=== PATIENT | female | born 1955 | race Caucasian/White ===

== ENCOUNTER 2016-09-15 15:45 | Day surgery (SDC) | payer OTHER ==
[2016-09-15 16:14] LABS: Mean Corpuscular Hemoglobin 28.8 pg (27.0-35.0)
[2016-09-22] MEDS ORDERED: LEVO75TA4 PO (11:15)
[2016-09-22] MEDS ORDERED: AMLO5TAB2 PO (11:15)
[2016-09-22] MEDS ORDERED: HYDR25TA4 PO (11:15)
[2016-09-22] MEDS ORDERED: ESTR10TA VAGINAL (11:15)
[2016-09-22] MEDS ORDERED: LORA10CA PO (11:15)
== END 2016-09-15 23:59 | disposition home or self-care (01) ==
LOC: SAS 15:45
PROVIDERS: ATTEND Orthopaedic Surgery
DX: Z01.818 Encounter for other preprocedural examination (principal); M17.12 Unilateral primary osteoarthritis, left knee

== ENCOUNTER 2016-09-24 07:03 | Day surgery (SDC) | payer OTHER ==
[~2016-09-24] VITALS: Ht 165.1 cm; Wt 68.9 kg
[~2016-09-24 07:03] MED LIST: AMLO5TAB2 PO; ESTR10TA VAGINAL; HYDR25TA4 PO; LEVO75TA4 PO; LORA10CA PO; Lactated Ringer's 1,000 ML IV ONE
[2016-09-24] MEDS ORDERED: Ondansetron 2 mg/mL 2 mL Inj ONE (07:04)
[2016-09-24] MEDS ORDERED: Propofol 10 mg/mL 20 mL Inj ONE (07:04)
[2016-09-24] MEDS ORDERED: MetoCLOpramide 5 mg/mL 2 mL Inj ONE (07:04)
[2016-09-24] MEDS ORDERED: Dexamethasone 4 mg/mL Inj ONE (07:04)
[2016-09-24] MEDS: Lactated Ringer's 1,000 ML IV SCH ×3 (07:07→09:12)
[2016-09-24] MEDS ORDERED: ZOLP10TA5 PO (07:18)
[2016-09-24 07:23] VITALS: BP 136/92; PULSE 59; RESP 15; O2SAT 97
[2016-09-24] MEDS ORDERED: Lactated Ringer's 500 ML IV PRN (08:31)
[2016-09-24] MEDS ORDERED: Lactated Ringer's 1,000 ML IV SCH (08:31)
--- NOTE | 2016-09-24 08:31 | PCM.HPANE ---
Patient Data Surgeon Admitting Provider: Attending Provider:Louie Easton DO Primary Care Physician:Roosevelt Dunlap MD Other Provider:Michelle Anguloingham Anesthesia Reason for Visit Left Medial Meniscus Tear Ht/WT & BMI Height (Feet): 5 Height (Inches): 5 Weight (Kilograms): 68.9 Body Mass Index 25.00 Allergies Coded Allergies: No Known Allergies (Unverified , 09/22/16) Past Anesthesia History Anesthesia History: Denies:: Anesthesia Reactions, Malignant Hyperthermia Diabetes History Hx Diabetes?: No MRSA MRSA: No Medications Hypertension Medication: Yes (HCTZ,AMLODIPINE) Home Meds Incl Beta Khai: No Reported Medications Zolpidem 10 Mg [id number] Mg PO prn #30 09/24/16 Loratadine (Claritin)10 Mg [id number] Mg PO DAILY Ref 0 09/22/16 Estradiol (Vagifem)10 Mcg [id number] Mcg VAGINAL 2X/WEEK 09/22/16 Levothyroxine 75 Mcg [id number] Mcg PO DAILY Ref 0 09/22/16 Amlodipine 5 Mg Tablet5 Mg PO DAILY Ref 0 09/22/16 Hydrochlorothiazide 25 Mg [id number] Mg PO DAILY 30 Days Ref 0 09/22/16 History History of ENT Problems?: Yes HEENT History: Positive for:: Sinus Problem (ENVIRONMENTAL ALLERGIES S/P NASAL/SINUS SURGERY) Denture Type: None Teeth Condition: Within Normal Limits Hx of Heart Problems?: Yes Cardiovascular History: Positive for:: Hypertension (HYPERLIPIDEMIA) Denies:: Heart Murmur Hx of Respiratory Problem?: Yes Respiratory History: Positive for:: Cough Denies:: Use of C-PAP Machine Hx Neurologic Problems?: No Hx of GI Problems?: Yes Other GI Pertinent History: S/P LT INGUINAL HERNIA RPR Hx of Problems?: Yes Other Pertinent History: LONG HX OF INTERMITTANT BOUTS OF URETHRAL IRRITATION Female Hx: Denies:: Currently Skin History: Denies:: History Skin Disorders? Pressure Ulcers Hx Musculoskeletal Problems?: Yes Musculoskeletal History: Positive for:: Musculoskeletal Trauma (LT MEDIAL MENISCUS TEAR=CURRENT PROBLEM) Hx of Psycho/Social Problems?: No Hx Surgeries?: Yes (B/L HAND RPR,LT DUPUYTREN'S RELEASE,NASAL/SINUS SURGERY,LT ING. HERNIA RPR) Hx Any Other Health Problems?: Yes Other History: Positive for:: Hospitalization (CHILDBIRTH) Thyroid Disease Denies:: Cancer Endocrine Disease History Blood Transfusions: Denies:: Blood Transfusions Hx Diabetes: No Hx Alcohol Use: YesAlcoholic Drinks Per Day: 1/DAYHx Substance Use: NoHave You Smoked inLast 12 mo: No Stop/Bang Treated for Sleep Apnea?: No Do You Have a CPAP Machine?: No S-Snoring: Do You Snore Loudly: No T-Tired: feel tired, fatigued: No O-Obsered: Observed not breath: No P-Blood Pressure: treated: Yes B- Body Mass Index > 35 kg/m2: No A- Age over 50: Yes N- Neck Large Circumference: No G- Gender Male: No LETICIA Total Score: 2 LETICIA Risk Assessment: Low Risk, <3 Yes Risk Assessment Category Category 1A: Patient has history of documented sleep apnea, and HAS NOT received any narcotic, sedative or anesthesia administration during this stay. Category 1B: Patient has history of documented sleep apnea, and HAS received any narcotic , sedative or anesthesia administration during this stay Category 2: Patient has SUSPECTED Obstructive Sleep Apnea, and HAS received any narcotic , sedative or anesthesia administration during this stay. Category 3: Patient has SUSPECTED Obstructive Sleep Apnea and HAS NOT received narcotic, sedative or anesthesia administration during this stay. Category 4: Outpatient in Procedural Areas with known sleep apnea or who screen positive for High Risk via the STOP/BANG questionnaire. Exam Exam Vital Signs Vital Signs Date Time Temp Pulse Resp B/P Pulse Ox O2 Delivery O2 Flow Rate FiO2 09/24/16 07:23 35.9 59 15 136/92 97 Room Air General Appearance: Oriented X3 HEENT/AIRWAY: MP 2 Lungs: Normal Air Movement Heart: Regular Rate/Rhythm Meds/Labs/Diagnostics Admission Meds Current Medications Lactated Ringer's (Lr) 1,000 ml @ 120 mls/hr Q8H20M IV Last administered on t 07:07; Start 09/24/16 at 05:00; Stop 09/24/16 at 13:19 Plan Impression Patient chart reviewed, patient interviewed and anesthestic plan with risks, benefits, and alternatives discussed, and informed consent obtained. ASA Physical Status: ASA2 Mod Systemic Disease Anesthetic Plan: GA Bene/Risks/Altern/Consents: Yes HP Complete Prior to Induction: Yes Raji Mortensen MD Sep 24, 2016 08:31
[2016-09-24] MEDS ORDERED: MetoCLOpramide 5 mg/mL 2 mL Inj IVPUSH PRN (08:35)
[2016-09-24] MEDS ORDERED: HYDROmorphone 1 mg/mL Inj IVPUSH PRN (08:35)
[2016-09-24] MEDS ORDERED: Phenylephrine 10,000 mCg/mL Inj IVPUSH PRN (08:35)
[2016-09-24] MEDS ORDERED: Dexamethasone 4 mg/mL Inj IVPUSH PRN (08:35)
[2016-09-24] MEDS ORDERED: Ondansetron 2 mg/mL 2 mL Inj IVPUSH PRN (08:35)
[2016-09-24] MEDS ORDERED: fentaNYL-PF 50 mCg/mL 2 mL Inj IVPUSH PRN (08:35)
[2016-09-24] MEDS ORDERED: EPHEDrine Sulfate 50 mg/mL Inj IVPUSH PRN (08:35)
[2016-09-24] MEDS ORDERED: Lidocaine 2%-Epi 1:100,000 20 mL Inj INFILTRATE ONE (09:12)
[2016-09-24] MEDS ORDERED: Ropivacaine-PF 0.5% 30 mL Inj INFILTRATE ONE (09:27)
[2016-09-24 09:55] VITALS: BP 117/68; PULSE 69; RESP 10; O2SAT 94
[2016-09-24 10:00] VITALS: BP 120/76; PULSE 68; RESP 11; O2SAT 96
[2016-09-24 10:05] VITALS: BP 120/72; PULSE 66; RESP 12; O2SAT 96
[2016-09-24] MEDS ORDERED: HYDROcodone-APAP 5-325 mg Tablet PO PRN (10:05)
[2016-09-24 10:27] VITALS: BP 120/70; PULSE 65; RESP 14; O2SAT 99
--- NOTE | 2016-09-24 12:21 | OP ---
[address] [address] OPERATIVE REPORT PATIENT: NAM TAYLOR : 1955 MR#: [id number] ADMIT: 09/24/2016 JOB ID: [id number] DATE OF SURGERY: 09/24/2016 PREOPERATIVE DIAGNOSIS(ES): Left knee torn medial meniscus. POSTOPERATIVE DIAGNOSIS(ES): Left knee torn medial meniscus. PROCEDURE: Left knee video arthroscopy with partial medial meniscectomy. SURGEON: Louie Easton DO ANESTHESIA: LMA general. INDICATIONS: The patient is a 61-year-old female who injured her left knee and has had pain with twisting movements due to a torn medial meniscus. We discussed treatment options for this, and she wished to proceed with a knee arthroscopy. We discussed risks, benefits, and possible complications of surgery, including but not limited to injury to nerves and vessels, infection, bleeding, incomplete relief of symptoms, stiffness, and need for additional procedures. The patient had good understanding. All questions were answered, and she wished to proceed. PROCEDURE IN DETAIL: Patient was brought to the operating room. She was given an LMA general anesthetic. The left lower extremity was sterilely prepped and draped. An incision was made over the anterolateral knee at the level of joint line, and the blunt trocar was introduced into the knee. Inspection was undertaken. She had a small amount of patellofemoral synovitis which was resected and some fat pad which was resected. Her medial meniscus was found to have a tear in the posterior horn. This was resected back to a stable base with a combination of biters and shaver. Her cartilage was in good condition with some mild softening C2 changes on the femur and tibia, but otherwise in generally very good condition. Her ACL was intact. Her lateral compartment had no evidence of meniscal pathology, no degenerative changes in the cartilage, and the patellofemoral cartilage was in excellent condition as well. The scope was then removed, and the portals were closed with interrupted nylon suture. Naropin was added as an adjunct local anesthetic. Sterile dressings were applied. Patient tolerated the procedure well. Blood loss was minimal. POSTOPERATIVE PROTOCOL: Have the patient weightbear to tolerance. Use crutches as needed. Ice and elevate. Follow up in two weeks or sooner if needed. She is given a prescription for hydrocodone as needed for pain, Charmco , #20.
--- NOTE | 2016-09-24 13:47 | PCM.ANEP1 ---
Post Anesthesia PACU Phase 1 Assessment Vital Signs Vital Signs Date Time Temp Pulse Resp B/P Pulse Ox O2 Delivery O2 Flow Rate FiO2 09/24/16 10:27 65 14 120/70 99 Room Air 09/24/16 10:05 66 12 120/72 96 Room Air 09/24/16 10:00 68 11 120/76 96 Simple Mask 10 09/24/16 09:55 36.8 69 10 117/68 94 Simple Mask 10 09/24/16 07:23 35.9 59 15 136/92 97 Room Air Anesthetic Administered: GA Level of Alertness: Awake, talking Pain: No Nausea or Vomiting: No CV Function & Hydration Stable: Yes Airway Device: Oxygen Delivery: Room Air Lungs: Normal Air Movement PACU Phase 2 Assessment Patient Instructions Provided: N/A Raji Mortensen MD Sep 24, 2016 13:47
== END 2016-09-24 23:59 | disposition home or self-care (01) ==
LOC: SAS 07:03
PROVIDERS: ATTEND Orthopaedic Surgery
PROC: 0SBD4ZZ Excision of Left Knee Joint, Percutaneous Endoscopic Approach (ICD-10-PCS; principal; 2016-09-24 08:45)
DX: S83.242A Other tear of medial meniscus, current injury, left knee, initial encounter (principal); W01.0XXA Fall on same level from slipping, tripping and stumbling without subsequent striking against object, initial encounter
CPT/HCPCS: 29881; J1100; J1885; J2405; J2765; J2795; J3010; J7120